=== PATIENT | male | born 1995 | race Two or more races ===

== ENCOUNTER 2020-11-23 09:58 | Emergency (ER) | payer OTHER ==
[~2020-11-23] VITALS: Ht 165.1 cm; Wt 81.6 kg
[2020-11-23] MEDS ORDERED: TRILEPTAL150 MG (10:14)
== END 2020-11-23 14:15 | disposition home or self-care (01) ==
LOC: ER 09:58
DX: S13.4XXA Sprain of ligaments of cervical spine, initial encounter (principal); S00.83XA Contusion of other part of head, initial encounter; S20.213A Contusion of bilateral front wall of thorax, initial encounter; V49.9XXA Car occupant (driver) (passenger) injured in unspecified traffic accident, initial encounter; Y93.89 Activity, other specified; Y92.488 Other paved roadways as the place of occurrence of the external cause; Y99.8 Other external cause status; Z03.818 Encounter for observation for suspected exposure to other biological agents ruled out